=== PATIENT | male | born 1945 | race Caucasian/White ===

== ENCOUNTER → 2016-08-11 | Outpatient (CLI) | payer BC ==
[~2016-08-11] MED LIST: ANSHCCR PR; ATOR-24 PO; ATOR-26 PO; CALC-51 PO; CALC250T8 PO; EPI PEN; ERYT2GEL3 TOP; GLUCOSAMINE PO; IBUP-1459 PO; NUTRTAB48 PO; OMEG10007 PO
== END | disposition home or self-care (01) ==
LOC: C.CTS 13:36
PROVIDERS: ATTEND Orthopaedic Surgery
DX: Z01.818 Encounter for other preprocedural examination (principal); M19.012 Primary osteoarthritis, left shoulder

== ENCOUNTER → 2017-02-24 | Day surgery (SDC) | payer BC ==
[2017-02-16 08:52] VITALS: Ht 177.8 cm; Wt 79.1 kg
[~2017-02-24] VITALS: Ht 177.8 cm; Wt 79.1 kg
[~2017-02-24] MED LIST changes: -ATOR-24 PO; -CALC-51 PO; -EPI PEN; -GLUCOSAMINE PO; -IBUP-1459 PO; +LIDOCAINE HCL 2% 2 ML VIAL (20MG/ML) ONE; -OMEG10007 PO; +PROPOFOL IV EMULSION 10 MG/ML 20 ML VIAL IV ONE; +SODIUM CHLORIDE 0.9% 500ML 500 ML IV ONE
--- NOTE | 2017-02-24 12:01 | Endo History and Physical ---
History & Physical Date of Service: Feb 24, 2017. Chief Complaint: SCREENING, HISTORY OF POLYPS 10YRS AGO Referring Physician: DR MURDOCK History of Present Illness 71 yo CM who presents for colonoscopy secondary to history of colon polyps. Past Surgical History Hx Cardiac Surgery: No Hx Internal Defibrillator: No Hx Pacemaker: No Hx Abdominal Surgery: No Hx of Implantable Prosthesis: No Hx Post-Op Nausea and Vomiting: No Hx Cancer Surgery: No Hx Thoracic Surgery: No Hx Orthopedic: Yes (RT KNEE ACL RECON) Hx Urinary Tract Surgery: Yes (LITHOTRIPSIES AND LASERS X13) Family History None Social History Smoking Status: Never Smoker Hx Substance Use: Yes ("A COUPLE TIMES/WEEK MARIJUANA") Hx Alcohol Use: Yes (3 GLASSES/NIGHT) Allergies Coded Allergies: BEE STING (Verified Allergy, Unknown, WELT, 02/24/17) HX ANAPHYLAXIS --> WENT THROUGH DESENSITIZATION PROCESS +30 YEARS AGO NO KNOWN DRUG ALLERGIES (Verified Allergy, Unknown, ., 02/24/17) Current Medications Reported Home Medications Medications Dose Route/Sig Max Daily Dose Days Date Category Erythromycin (Erythromycin (Acne Aid)) 2 % Gel 1 Dose TOP UD 02/16/17 Reported Glucosamine Complex (Nutritional Supplements) 1 Tab Tab 1 Tab PO BID 02/16/17 Reported Calcium Citrate 250 Mg Tab 1 Tab PO QPM 02/16/17 Reported Proctosol Hc (Hydrocortisone) 90 Appln/30 Gm Cr 1 Appln [place] BID PRN 02/16/17 Reported Lipitor (Atorvastatin Calcium) 80 Mg Tab 80 Mg PO QPM 02/16/17 Reported Vital Signs Weight (Kilograms): 79.09 Height (Feet): 5 Height (Inches): 10 Date Time Temp Pulse Resp B/P (MAP) Pulse Ox O2 Delivery O2 Flow Rate FiO2 02/24/17 11:12 36.7 65 16 153/81 (105) 100 Room Air Physical Exam General Appearance: WD/WN, no apparent distress Respiratory/Chest: Auscultation: breath sounds normal Cardiovascular: Heart Auscultation: RRR Abdomen: Bowel Sounds: normal Inspection & Palpation: soft, non-distended, no tenderness, guarding & rebound Assessment and Plan Assessment: 71 yo CM who presents for colonoscopy secondary to history of colon polyps. Plan: Proceed with colonoscopy.
--- NOTE | 2017-02-24 13:01 | Discharge Instructions ---
Endoscopy Patient Instructions Date / Procedure(s) Performed Feb 24, 2017. Colonoscopy Allergy Information Coded Allergies: BEE STING (Verified Allergy, Unknown, WELT, 02/24/17) HX ANAPHYLAXIS --> WENT THROUGH DESENSITIZATION PROCESS +30 YEARS AGO NO KNOWN DRUG ALLERGIES (Verified Allergy, Unknown, ., 02/24/17) Discharge Date / Findings Feb 24, 2017. Diverticulosis Internal hemorrhoids Medication Instructions OK to resume all medications today as prescribed Reported Home Medications Medications Dose Route/Sig Max Daily Dose Days Date Category Erythromycin (Erythromycin (Acne Aid)) 2 % Gel 1 Dose TOP UD 02/16/17 Reported Glucosamine Complex (Nutritional Supplements) 1 Tab Tab 1 Tab PO BID 02/16/17 Reported Calcium Citrate 250 Mg Tab 1 Tab PO QPM 02/16/17 Reported Proctosol Hc (Hydrocortisone) 90 Appln/30 Gm Cr 1 Appln [place] BID PRN 02/16/17 Reported Lipitor (Atorvastatin Calcium) 80 Mg Tab 80 Mg PO QPM 02/16/17 Reported Provider Instructions Activity Restrictions - No exercising or heavy lifting for 24 hours. - Do not drink alcohol the day of the procedure. - Do not drive a car or operate machinery until the day after the procedure. - Do not make any important decisions or sign important papers in 24 hours after the procedure. Following Day: - Return to full activity which may include returning to work/school. Diet Start your diet with liquids and light foods (jello, soup, juice, toast). Then eat your usual diet if not nauseated. Treatment For Common After Affects For mild abdominal pain, bloating, or excessive gas: - Rest - Eat lightly - Lie on right side Follow-Up Information Follow-up with DR MURDOCK as scheduled Anesthesia Information What You Should Know You have had a procedure that required some medicine to reduce anxiety and discomfort. This treatment is called moderate sedation. After receiving the treatment, you may be sleepy, but you will be able to breathe on your own. The effects of the treatment may last for several hours. Follow these instructions along with Activity/Diet recommendations noted above: * Do NOT do anything where dizziness or clumsiness would be dangerous. * Rest quietly at home today, then you can be up and about tomorrow. * Have a responsible person stay with you the rest of today. * You may have had an I.V. today. If so, you may take the dressing off later today. Recommendations Call your doctor if: * Trouble breathing * Continuous vomiting for more than 24 hours * Temperature above 101 degrees * Severe abdominal pain or bloating * Pain not relieved by pain medicine ordered * There is increased drainage or redness from any incision * A large amount of rectal bleeding greater than 2-3 tablespoons. (If you had a polyp/s removed or have hemorrhoids, a small amount of blood - from the rectum is to be expected.) * You have any unanswered questions or concerns. IN THE EVENT OF A SERIOUS EMERGENCY, GO TO THE NEAREST EMERGENCY ROOM Your discharge instructions were prepared by provider Koko Bradshaw. Patient Instructions Signature Page Zachariah Simmons Patient (or Guardian) Signature/Date: I have read and understand the instructions given to me by my caregivers. Caregiver/RN/Doctor Signature/Date: The above-named patient and/or guardian has received patient instructions on this date. + Original Patient Signature Page (only) stays with chart. Please make copy for patient.
--- NOTE | 2017-02-24 13:23 | Anesthesiology Progress Note ---
Anesthesia Post Op Note Date & Time Feb 24, 2017 at 13:23 Vital Signs Pain Intensity: 0 Vital Signs Past 12 Hours Date Time Temp Pulse Resp B/P (MAP) Pulse Ox O2 Delivery O2 Flow Rate FiO2 02/24/17 13:14 44 16 138/88 (105) 96 Room Air 02/24/17 12:59 53 16 128/81 (97) 97 Room Air 02/24/17 11:12 36.7 65 16 153/81 (105) 100 Room Air Notes Mental Status: alert / awake / arousable, participated in evaluation Pt Amnestic to Procedure: Yes Nausea / Vomiting: adequately controlled Pain: adequately controlled Airway Patency, RR, SpO2: stable & adequate BP & HR: stable & adequate Hydration State: stable & adequate Anesthetic Complications: no major complications apparent
[2017-02-24 13:29] VITALS: BP 137/89; PULSE 43; O2SAT 97
--- NOTE | 2017-02-24 13:33 | GI REPORT ---
Procedure Date: 02/24/2017 12:32 PM Procedure: Colonoscopy Indications: High risk colon cancer surveillance: Personal history of colonic polyps Medicines: Monitored Anesthesia Care Complications: No immediate complications. Estimated Blood Loss: Estimated blood loss: none. Procedure: Pre-Anesthesia Assessment: - Prior to the procedure, a History and Physical was performed, and patient medications and allergies were reviewed. The patient's tolerance of previous anesthesia was also reviewed. The risks and benefits of the procedure and the sedation options and risks were discussed with the patient. All questions were answered, and informed consent was obtained. Prior Anticoagulants: The patient has taken no previous anticoagulant or antiplatelet agents. ASA Grade Assessment: II - A patient with mild systemic disease. After reviewing the risks and benefits, the patient was deemed in satisfactory condition to undergo the procedure. After I obtained informed consent, the scope was passed under direct vision. Throughout the procedure, the patient's blood pressure, pulse, and oxygen saturations were monitored continuously. The scope was introduced through the anus and advanced to the terminal ileum. The colonoscopy was performed without difficulty. The patient tolerated the procedure well. The quality of the bowel preparation was good. The terminal ileum, ileocecal valve, appendiceal orifice, and rectum were photographed. Findings: Multiple small-mouthed diverticula were found in the sigmoid colon. Non-bleeding internal hemorrhoids were found during retroflexion. The hemorrhoids were small. Impression: - Diverticulosis in the sigmoid colon. - Non-bleeding internal hemorrhoids. - No specimens collected. Recommendation: - Resume previous diet. - Continue present medications. - Repeat colonoscopy in 5 years for surveillance. - Return to primary care physician as previously scheduled. Koko Bradshaw DO 02/24/2017 1:32:43 PM This report has been signed electronically. Note Initiated On: 02/24/2017 12:32 PM I attest to the content of the Intraoperative Record and orders documented therein, exceptions below
== END | disposition home or self-care (01) ==
LOC: C.GI 10:50
PROVIDERS: ATTEND Internal Medicine
DX: Z12.11 Encounter for screening for malignant neoplasm of colon (principal); Z86.010 Personal history of colon polyps; K57.92 Diverticulitis of intestine, part unspecified, without perforation or abscess without bleeding; K64.8 Other hemorrhoids; E78.5 Hyperlipidemia, unspecified; M19.90 Unspecified osteoarthritis, unspecified site; Z87.442 Personal history of urinary calculi; N40.0 Benign prostatic hyperplasia without lower urinary tract symptoms

== ENCOUNTER → 2017-03-25 | Outpatient (CLI) | payer BC ==
[~2017-03-25] MED LIST changes: -LIDOCAINE HCL 2% 2 ML VIAL (20MG/ML) ONE; -PROPOFOL IV EMULSION 10 MG/ML 20 ML VIAL IV ONE; -SODIUM CHLORIDE 0.9% 500ML 500 ML IV ONE
[2017-03-25 10:44] LABS: ALT/SGPT 25 U/L (12-78); AST/SGOT 20 U/L (15-37); BLOOD UREA NITROGEN 15 mg/dl (7-18); BUN/CREATININE RATIO 17.6 (10-20); CALCIUM 9.6 mg/dl (8.5-10.1); CARBON DIOXIDE 28 mmol/L (21-32); CHLORIDE 107 mmol/L (98-107); CHOLESTEROL 152 mg/dl (0-200); CREATININE 0.85 mg/dl (0.60-1.40); GLUCOSE 91 mg/dl (70-99); POTASSIUM 4.1 mmol/L (3.5-5.1); SODIUM 140 mmol/L (136-145); TRIGLYCERIDES 56 mg/dl (0-150); VERY LOW DENSITY LIPOPROT CALC 11 mg/dl
[2017-03-25 10:48] LABS: ALB/GLOB RATIO 1.5 (0.9-2); ALKALINE PHOSPHATASE 76 U/L (45-117); CHOLESTEROL/HDL RATIO 2.1; HDL CHOLESTEROL 73 mg/dl; LDL CHOLESTEROL CALCULATED 68 mg/dl; PROSTATE SPECIFIC ANTIGEN 0.524 ng/ml (0.000-4.000)
== END | disposition home or self-care (01) ==
LOC: C.LAB 09:20
PROVIDERS: ATTEND Family Medicine
DX: E78.5 Hyperlipidemia, unspecified (principal); Z12.5 Encounter for screening for malignant neoplasm of prostate

== ENCOUNTER → 2017-11-09 | Outpatient (CLI) | payer BC | END | disposition home or self-care (01) | LOC: C.PATHSPEC 17:15 | PROVIDERS: ATTEND Surgery | DX: L72.0 Epidermal cyst (principal) ==

== ENCOUNTER 2020-11-04 10:33 | Observation (INO) ==
--- NOTE | 2020-09-30 14:44 | PAT Medication Instructions ---
Medication Instructions Date of Service September 30, 2020 Home Medications calcium citrate 200 mg (950 mg) tablet 200 mg PO QAM erythromycin with ethanol 2 % topical gel See Rx Instructions TOPICAL .COMPLEX zinc 50 mg tablet 50 mg PO QAM atorvastatin 40 mg tablet 40 mg PO QPM prednisone 5 mg tablet 5 mg PO .COMPLEX acetaminophen 650 mg tablet,extended release 650 mg PO Q12H glucosamine sulfate 500 mg tablet 500 mg PO QAM melatonin 5 mg PO HS PRN Continue as directed erythromycin with ethanol 2 % topical gel See Rx Instructions TOPICAL .COMPLEX prednisone 5 mg tablet 5 mg PO .COMPLEX STOP taking 2 weeks before surgery If surgery is within 2 weeks, stop taking as soon as possible. glucosamine sulfate 500 mg tablet 500 mg PO QAM DO NOT take the morning of surgery calcium citrate 200 mg (950 mg) tablet 200 mg PO QAM zinc 50 mg tablet 50 mg PO QAM Take morning of surgery With a small sip of water, OTHERWISE NOTHING TO EAT OR DRINK AFTER MIDNIGHT: acetaminophen 650 mg tablet,extended release 650 mg PO Q12H (if needed, may be taken up to four hours before surgery) Take evening before surgery atorvastatin 40 mg tablet 40 mg PO QPM acetaminophen 650 mg tablet,extended release 650 mg PO Q12H melatonin 5 mg PO HS PRN (if needed) Other Notes If you have any questions please call us at [phone] or [phone] or [phone] or [phone]
--- NOTE | 2020-10-01 12:13 | Anesthesiology Consultation ---
Date of Service October 01, 2020 Assessment & Plan (1) Encounter for pre-operative examination: COVID Status: As of 10/01 assessment, patient denies travel to endemic area, known exposure/sick contacts, or symptoms of COVID19. Patient instructed that they and their household members must follow strict social distancing guidelines, wear a mask in public and avoid travel/events/gatherings prior to surgery. Preoperative COVID19 testing to be completed prior to surgery per surgeon's arrangements. Patient made aware to self-isolate as much as possible between COVID testing and surgery. Patient will be getting his second COVID vaccine on 10/21. He and his are planning to travel to [place] to see their sons tomorrow, returning 10/09. This is well in advance of his surgery, and patient is very conscientious about masking (wears two masks in public spaces). He is aware to not travel within 2 weeks of his surgery. Patient hypertensive at [facility], but reports normal readings at PCP office visits, and PCP has never indicated any need for medications. Review of [facility] records shows BP normally 120's-130's systolic, 70s diastolic. He is somewhat nervous about surgery/hospital setting, likely some degree of 'white coat HTN.' Chart Review Chart Review: Acceptable Risk for Surgery and Patient seen in Pre Admission Testing Teaching & Discussion Instructed NPO after midnight before surgery, except medications with 15 cc of water. Medication instructions provided according to the [facility] guidelines. History Surgery Operation Date: 11/04/20 11:30 Proposed Procedures p Left Total Shoulder Arthroplasty - Dimitri Montoya, Height/Weight Height: 5 ft 10 in Weight: 82.4 kg Allergies Allergy/AdvReac Type Severity Reaction Status Date / Time bee venom protein (honey bee) Allergy Unknown WELT Verified 09/09/20 11:03 No Known Drug Allergies Allergy Unknown . Verified 09/09/20 11:03 Medications Home Medications Medication Instructions Recorded Confirmed Last Taken calcium citrate 200 mg (950 mg) 200 mg PO QAM tab 03/23/19 10/01/20 Unknown tablet erythromycin with ethanol 2 % See Rx Instructions TOPICAL 03/23/19 10/01/20 Unknown topical gel .COMPLEX gm zinc 50 mg tablet 50 mg PO QAM 03/23/19 10/01/20 Unknown atorvastatin 40 mg tablet 40 mg PO QPM 06/14/19 10/01/20 Unknown prednisone 5 mg tablet 5 mg PO .COMPLEX 02/28/20 10/01/20 Unknown acetaminophen 650 mg 650 mg PO Q12H 07/05/20 10/01/20 Unknown tablet,extended release glucosamine sulfate 500 mg tablet 500 mg PO QAM tab 07/05/20 10/01/20 Unknown melatonin 5 mg PO HS PRN 07/05/20 10/01/20 Unknown Past Medical History Medical History (Updated 10/01/20 @ 12:17 by Dontrell Murcia) Diverticulosis Folliculitis Hyperlipidemia Kidney stones hx of and had lithotripsy and ESWL Multiple benign nevi Osteoarthritis Osteoarthritis of left shoulder PMR (polymyalgia rheumatica) Exercise / Class Metabolic Activity 1 > 8 Run/Swim/Ski/Tennis Past Surgical History Surgical History (Updated 10/01/20 @ 12:05 by Dontrell Murcia) History of arthroscopy of right knee acl repair History of carpal tunnel surgery of right wrist Hx of left inguinal hernia repair Hx of umbilical hernia repair Past Anesthesia History No Hx of Anesthesia Complications and No Family Hx of Anesthesia Complications History of PONV No Hx of PONV and No Hx of Motion Sickness Social History Smoking Status: Never smoker Do You Dip or Chew Tobacco: No Hx Alcohol Use: Yes alcohol intake frequency: 3 or more drinks per day (4/day) Hx Substance Use: Yes substance use type: marijuana Last Used Substance Other:: small amount daily, advised none for 24 hrs prior to surgery Review of Systems Pt denies any recent chest pain, shortness of breath, palpitations, cough, fever, URI, or uncontrolled acid reflux. Physical Exam Vital Signs BP: 168/98 (rpt 166/96) P: 51bpm SPO2: 98% RA T: 98.7 F R: 12 ENMT Mouth: + dental restorations (several crowns and fillings); no chipped teeth and no loose teeth Thyromental Distance: < 3.5 Finger Breadths (3) Mallampati Class: I Neck + facial hair (long thick bushy mejia); neck extension not limited Respiratory normal respiratory effort, lungs clear to auscultation Cardiovascular Rate/Rhythm: regular rhythm and + bradycardic Heart Sounds: no murmur Vessels: no carotid bruit Extremities: no edema Testing Laboratory Results 10/01/20 12:33 10/01/20 12:33 PT 10.2 Seconds (9.0-12.0) 10/01/20 12:33 INR 1.0 (0.9-1.1) 10/01/20 12:33 APTT 24.8 Seconds (21.0-31.0) 10/01/20 12:33 Blood Type A Positive 10/01/20 12:33 Antibody Screen NEGATIVE 10/01/20 12:33 Electrocardiogram Date: 10/01/20 Findings: + SB @ (48bpm) Nonspecific ST abnormality. Compared with EKG of 03/23/2013, no significant change was found. Chest X-Ray Date: 10/01/20 Findings: + NAD
--- NOTE | 2020-10-01 12:58 | XRay Report ---
TWO VIEW CHEST CLINICAL HISTORY: Preoperative examination. FINDINGS: PA and lateral chest radiographs are compared to study dated 05/07/2009. The heart is mildl y enlarged. The pulmonary vasculature is noncongested. The lungs and pleural spaces are clear. There is no pneumothorax. The bony thorax appears intact. Arthritic change is noted in the left shoulder. IMPRESSION: No active disease in the chest. ACT 112: Negative or not required by law. Electronically signed by: Edgard Lees M.D. 10/01/2020 12:57 PM
[2020-10-01 13:46] LABS: Basophils # (auto) 0.02 K/uL (0-0.2); Basophils % (auto) 0.3 %; Eosinophils # (auto) 0.03 K/uL (0-0.5); Eosinophils % (auto) 0.4 %; Hematocrit (blood only) 39.6 % (42-52); Hemoglobin 13.9 g/dL (14.0-18.0); Immature Granulocytes # (auto) 0.02 K/uL (0.00-0.02); Immature Granulocytes % (auto) 0.3 %; Lymphocytes # (auto) 1.06 K/uL (1.2-3.4); Lymphocytes % (auto) 15.8 %; Mean Corpuscular Hemoglobin 32.5 pg (25-34); Mean Corpuscular Hgb Conc 35.1 g/dL (32-36); Mean Corpuscular Volume 92.5 fL (80-100); Monocytes # (auto) 0.43 K/uL (0.11-0.59); Monocytes % (auto) 6.4 %; Neutrophils # (auto) 5.17 K/uL (1.4-6.5); Neutrophils % (auto) 76.8 %; Platelet Count 342 K/uL (130-400); RDW Standard Deviation 43.8 fL (36.4-46.3); Red Blood Count 4.28 M/uL (4.7-6.1); White Blood Count 6.73 K/uL (4.8-10.8)
[2020-10-01 14:00] LABS: Partial Thromboplastin Ratio 0.9; Partial Thromboplastin Time 24.8 Seconds (21.0-31.0); Prothrombin Time 10.2 Seconds (9.0-12.0)
[2020-10-01 14:05] LABS: BUN Creatinine Ratio 21.3 (10-20); Calcium 9.5 mg/dl (8.5-10.1); Creatinine Clr Calc Pharmacy 80.9 ml/min; Est GFR (African American) 100.7; Est GFR (Non-African American) 86.9; Potassium 3.9 mmol/L (3.5-5.1)
--- NOTE | 2020-10-01 16:29 | Electrocardiogram Report ---
Test Reason : Blood Pressure : / mmHG Vent. Rate : 048 BPM Atrial Rate : 048 BPM P-R Int : 172 ms QRS Dur : 106 ms QT Int : 500 ms P-R-T Axes : 078 071 047 degrees QTc Int : 446 ms Sinus bradycardia Nonspecific ST abnormality Abnormal ECG When compared with ECG of 23-MAR-2013 10:03, No significant change was found Confirmed by Rajinder Cruz ([id number]) on 10/01/2020 4:28:35 PM Referred By: Dimitri Montoya Confirmed By:Rajinder Cruz
--- NOTE | 2020-11-04 06:33 | History & Physical Report ---
Date of Service November 04, 2020 Assessment & Plan (1) Osteoarthritis of left shoulder: We will proceed with a left total shoulder arthroplasty. Postoperatively he will be placed in a sling and kept overnight in the hospital for postoperative medical management. He plans to use energy physical therapy upon discharge. History of Present Illness Chief Complaint: Advanced osteoarthritis of the left shoulder. Primary Care Provider: Manuelito Tolentino MD Nikunj is a pleasant 75-year-old male who is been dealing with chronic increasing left shoulder pain. X-rays and clinical examination have been diagnostic for advanced osteoarthritis of the left shoulder. After failing conservative treatment, he has elected to proceed with a left total shoulder arthroplasty.. Allergies Allergy/AdvReac Type Severity Reaction Status Date / Time bee venom protein (honey bee) Allergy Unknown WELT Verified 09/09/20 11:03 No Known Drug Allergies Allergy Unknown . Verified 09/09/20 11:03 Home Medications Medication Instructions Recorded Confirmed Type calcium citrate 200 mg (950 mg) 200 mg PO QAM tab 03/23/19 10/01/20 History tablet erythromycin with ethanol 2 % See Rx Instructions TOPICAL 03/23/19 10/01/20 History topical gel .COMPLEX gm zinc 50 mg tablet 50 mg PO QAM 03/23/19 10/01/20 History atorvastatin 40 mg tablet 40 mg PO QPM 06/14/19 10/01/20 History prednisone 5 mg tablet 5 mg PO .COMPLEX 02/28/20 10/01/20 History acetaminophen 650 mg 650 mg PO Q12H 07/05/20 10/01/20 History tablet,extended release glucosamine sulfate 500 mg tablet 500 mg PO QAM tab 07/05/20 10/01/20 History melatonin 5 mg PO HS PRN 07/05/20 10/01/20 History Past Med/Surg History Medical History Diverticulosis Folliculitis Hyperlipidemia Kidney stones hx of and had lithotripsy and ESWL Multiple benign nevi Osteoarthritis Osteoarthritis of left shoulder PMR (polymyalgia rheumatica) Surgical History History of arthroscopy of right knee acl repair History of carpal tunnel surgery of right wrist Hx of left inguinal hernia repair Hx of umbilical hernia repair Social History Smoking Status: Never smoker Second Hand Exposure: No; Hx Alcohol Use: Yes Hx Substance Use: Yes Last Used Substance Other:: small amount daily, advised none for 24 hrs prior to surgery Preferred Language: Citizen [place] Communication Ability: Effective 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 Physical Exam On physical examination of the left shoulder, he has limited range of motion about 90 degrees of forward elevation 90 degrees of abduction. He has good strength and crepitus throughout.. Constitutional WD/WN, vitals as above Eyes PERRL, conjunctivae normal, anicteric sclerae ENMT external ear and nose normal, oropharynx normal Neck trachea midline, no thyromegaly Respiratory normal respiratory effort Cardiovascular RRR, no murmur, no edema Gastrointestinal (Abdomen) normal bowel sounds, soft, nontender, no hepatosplenomegaly Psychiatric A+Ox3, euthymic affect Results & Data Results & Data Laboratory Results . Diagnostic Findings X-rays of the left shoulder do show advanced osteoarthritis with joint space narrowing, osteophyte formation, and [id number] articulation. PG Care Time/CCT Total # of Minutes Spent Total Time Spent with Patient: Total time spent is greater than 50% in coordination of care (as documented) at patient's floor/unit and/or counseling patient: Coding Level of Care Code None Diagnoses Osteoarthritis of left shoulder M19.012
[~2020-11-04 10:33] MED LIST changes: +ACETAMINOPHEN 500 MG TAB PO SCH; -ANSHCCR PR; -ATOR-26 PO; +BUPIVACAINE 0.5 % 5 MG/1 ML PF 10ML VIAL ONE; -CALC250T8 PO; -ERYT2GEL3 TOP; +FAMOTIDINE 20 MG TAB PO SCH; +GABAPENTIN 300 MG CAP PO SCH; +LR 15ML/HR IV SCH; +LR 60ML/HR IV SCH; -NUTRTAB48 PO; +ROPIVACAINE 0.5% HCL/PF 150 MG, BUPIVACAINE 0.75% MPF 20 ML, EPINEPHrine 30MG/30ML (OR ... INSTIL SCH; +TRANEXAMIC ACID 1,000 MG **IV Intra-op IV SCH; +TRANEXAMIC ACID 1,000 MG **IV Pre-op IV SCH; +ceFAZolin 2000MG 2,000 MG/15 ML SYR IV SCH; +dexAMETHasone 4 MG TAB PO SCH
[2020-11-04] MEDS ORDERED: fentaNYL citrate 100 MCG/2 ML VIAL ONE (11:06)
[2020-11-04] MEDS ORDERED: MIDAZOLAM HCL 1 MG/ML 2ML VIAL ONE (11:06)
[2020-11-04] MEDS ORDERED: ORTHO JOINT ANESTHETIC ONE (11:57)
[2020-11-04] MEDS ORDERED: PROMETHAZINE HCL 12.5 MG in SODIUM CHLORIDE 0.9% 50 ML IV PRN (12:02)
[2020-11-04] MEDS ORDERED: ONDANSETRON INJ 2 MG/ML 2 ML VIAL IV PRN ×2 (12:02→16:08)
[2020-11-04] MEDS ORDERED: HYDROmorphone INJ 1 MG/ML SYRINGE IV PRN (12:02)
[2020-11-04] MEDS ORDERED: ePHEDrine sulfate 50 MG/ML AMP IV PRN (12:02)
[2020-11-04] MEDS ORDERED: fentaNYL citrate 100 MCG/2 ML VIAL IV PRN (12:02)
[2020-11-04] MEDS ORDERED: NALOXONE HCL 0.4 MG/1 ML VIAL/CARP IV PRN ×2 (12:02→16:08)
[2020-11-04] MEDS ORDERED: FLUMAZENIL 0.1 MG/1 ML 10 ML VIAL IV PRN (12:02)
[2020-11-04] MEDS ORDERED: ATROPINE SULFATE 0.1 MG/ML 10ML SYR IV PRN (12:02)
--- NOTE | 2020-11-04 14:17 | Operative Report ---
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 I identified the patient and participated in the time-out.: Yes Procedure Operation Date: 11/04/20 12:45 Actual Procedures p Left Total Shoulder Arthroplasty(Left) with open biceps tenodesis as a distinct and separate procedure (modifier 59)- Dimitri Montoya DO Surgeon Dimitri Montoya DO Transfer And Pumphouse Operator Dimitri Lema PAC Estimated Blood Loss 250 Findings Consistent with Post-Op Diagnosis Specimens Left humeral head Complications none Disposition Disposition: Recovery Room Indications Nikunj is a pleasant 75-year-old male who has been dealing with chronic increasing left shoulder pain. X-rays and clinical examination were diagnostic for advanced osteoarthritis of the left shoulder. After failing years of conservative treatment, he has elected proceed with a left total shoulder arthroplasty Description of Procedure A CPT code modifier 59: The long head of the biceps tendon was enlarged and inflamed consistent with tendinopathy. A tenodesis was opted. This was a separate and distinct portion of the procedure. For these reasons, a CPT code modifier 59 will be added to this case. Implants used: I used a [employer] Comprehensive total shoulder arthroplasty system with a size 15 press fit micro humeral stem, a size 46 x 18 eccentric humeral head, and a size 5 glenoid with a trabecular metal peg. The glenoid was cemented in place with Palacos G cement. Nikunj arrived at [facility] for the above procedure. He was seen in the preoperative holding area and the operative extremity was identified and signed. He was given a preoperative antibiotic, TXA, and an interscalene nerve block. He was taken back to the operating room, laid on table in supine po sition, and put under general anesthesia. He was then put into the beachchair position. The shoulder was then prepped and draped in sterile fashion. A timeout was done and the patient and the operative extremity was properly identified. A deltopectoral approach was used. Dissection was taken down through the fascia and the deltoid was retracted laterally and the conjoined tendon was retracted medially. The anterior shoulder was exposed. The biceps groove was opened up and the biceps tendon was examined extensively. The biceps tendon demonstrated enlargement and inflammatory changes consistent with longstanding inflammation in the context of osteoarthritis. The long head of the biceps tendon was then tenodesed to the upper border of the pectoralis major. This was a separate and distinct portion of the procedure. The subscapularis was then released off the lesser tuberosity with a centimeter of cuff tissue remaining. The inferior capsule was released and the humeral head was dislocated. The rotator cuff was inspected and intact. A canal finding reamer was sent down the center of the humeral canal. Sequential reaming up to a size 15 reamer was done. Offset reamer a proximal humeral resection guide was placed. The proximal humerus was resected at 135 of inclination and 30 of retroversion. Inferior osteophytes were then removed and the glenoid was exposed. Time was spent doing an appropriate labral release. The glenoid measured to be a size 5. A 3.2 mm Steinmann pin was placed in the central hole of the glenoid vault pin guide. The glenoid was then reamed with a propeller reamer. The central post cutter was then used to prepare for the central boss. The cannulated peripheral peg drill guide was then placed and 3 peg holes were drilled. The final size 5 glenoid was then cemented in place with Palacos G cement. Surrounding soft tissues were then injected with 100 cc of an orthopedic pain control cocktail. Once cement had dried the proximal humerus was once again exposed. Sequential broaching of the humerus up to a size 15 broach was done. Off that broach a size 46 x 18 eccentric humeral head was trialed. The shoulder was then reduced, brought through a full range of motion, and felt to be stable. The shoulder was then dislocated and the broach was removed. The final size 15 micro humeral stem implant was then impacted into place. A size 46 x 18 eccentric humeral head was then impacted onto the humeral stem. The shoulder was then reduced and once again brought through a full range of motion and felt to be stable. The subscapularis was then tenodesed back to the lesser tuberosity with transosseous FiberWire sutures and side to side sutures with the arm in 45 of external rotation. 2 sutures were placed in the lateral rotator interval. A dilute betadyne lavage was then done for 3 minutes. The joint was then irrigated with normal saline solution. Hemostasis was obtained. The interval was closed with 2-0 Vicryl suture. The skin was closed with 2-0 Vicryl and venice. A Silverlon dressing was placed and the arm was rested in a regular arm sling. He was then extubated and transferred to a hospital bed. He was taken to the postanesthesia care unit in stable condition. He tolerated the procedure well. Dimitri Lema PA-C, was present for the entire procedure. He was critical for patient positioning, prepping, draping, retraction exposure, wound closure and application of sterile dressing. I attest to the content of the Intraoperative Record and any orders documented therein. Any exceptions are noted below.
[2020-11-04] MEDS ORDERED: PROPOFOL IV EMULSION 10 MG/ML 20 ML VIAL IV ONE (14:49)
[2020-11-04] MEDS ORDERED: LARYING-O-JET KIT (LTA) ONE (14:49)
[2020-11-04] MEDS ORDERED: ePHEDrine sulfate 50 MG/ML SYR ONE (14:49)
[2020-11-04] MEDS ORDERED: CISATRACURIUM BESYLATE IV SOLN 2 MG/ML 10 ML VIAL IV ONE (14:49)
[2020-11-04] MEDS ORDERED: NEOSTIGMINE METHYLSULFATE 5 MG/5 ML SYR ONE (14:49)
[2020-11-04] MEDS ORDERED: LIDOCAINE HCL 2% 2 ML VIAL/AMP(20MG/ML) INFIL ONE (14:49)
[2020-11-04] MEDS ORDERED: PHENYLEPHRINE 100MCG/ML 5ML SYR ONE (14:49)
[2020-11-04] MEDS ORDERED: DEXAMETHASONE SOD INJ 4 MG/ML VIAL ONE (14:49)
[2020-11-04] MEDS ORDERED: ONDANSETRON INJ 2 MG/ML 2 ML VIAL ONE (14:49)
[2020-11-04] MEDS ORDERED: GLYCOPYRROLATE 0.2 MG/ML VIAL ONE (14:49)
[2020-11-04] MEDS ORDERED: hydrALAZINE HCL 20 MG/ML VIAL IV STA (14:58)
[2020-11-04] MEDS ORDERED: hydrALAZINE HCL 20 MG/ML VIAL ONE (15:00)
--- NOTE | 2020-11-04 15:10 | XRay Report ---
XR shoulder LT min 2V routine CLINICAL HISTORY: Post shoulder surgery COMPARISON: Left shoulder radiographs July 02, 2020. FINDINGS: Alignment of the left shoulder arthroplasty is anatomic. There is no periprosthetic fractu re. Skin venice are present. There are no unexpected radiopaque foreign bodies. IMPRESSION: Expected findings following left shoulder arthroplasty. ACT 112: Negative or not required by law. Electronically signed by: Ced Moss M.D. 11/04/2020 3:09 PM
--- NOTE | 2020-11-04 15:22 | Anesthesiology Progress Note ---
Date of Service November 04, 2020 Anesthesia Post Procedure Vital Signs Vital Signs: Temp Pulse Pulse Resp BP BP Pulse Ox 11/04/20 15:15 74 20 171/97 H 95 11/04/20 15:05 67 15 175/101 H 96 11/04/20 14:55 67 14 145/99 H 100 11/04/20 14:45 70 15 146/87 H 100 11/04/20 14:36 36.2 C L 76 20 153/90 H 100 11/04/20 11:22 37 C 56 L 18 181/103 H 98 Transfer of Care Handoff Completed per policy Notes Mental Status: alert / awake / arousable Patient Amnestic to Procedure: Yes Nausea / Vomiting: adequately controlled Pain: adequately controlled Airway Patency, RR, SpO2: stable & adequate BP & HR: stable & adequate Hydration State: stable & adequate Anesthetic Complications: no major complications apparent
[2020-11-04] MEDS ORDERED: oxyCODONE HCL IR 5 MG TAB (IMMEDIATE RELEASE) PO PRN (16:08)
[2020-11-04] MEDS ORDERED: MAGNESIUM HYDROXIDE SUSP 30 ML UDC PO PRN (16:08)
[2020-11-04] MEDS ORDERED: HYDROmorphone INJ 0.5 MG/0.5 ML SYR IV PRN (16:08)
[2020-11-04] MEDS ORDERED: METOCLOPRAMIDE HCL INJ 5 MG/ML 2 ML VIAL IV PRN (16:08)
[2020-11-04] MEDS ORDERED: bisacodyL 10 MG SUPP PR PRN (16:08)
[2020-11-04] MEDS: SODIUM CHLORIDE 0.9% 1000ML 1,000 ML IV SCH (16:18)
[2020-11-04] MEDS: KETOROLAC TROMETHAMINE 15 MG/ML VIAL IV SCH ×2 (18:02→23:06)
[2020-11-04] MEDS: DOCUSATE SODIUM 100 MG CAP PO SCH (20:40)
[2020-11-04] MEDS: ceFAZolin 2000MG 2,000 MG/15 ML SYR IV SCH (20:41)
[2020-11-04] MEDS ORDERED: ATORVASTATIN 40 MG TAB PO SCH ×2 (21:00)
[2020-11-04] MEDS ORDERED: SENNA 8.6 MG TAB PO SCH (21:00)
[2020-11-04] MEDS: ACETAMINOPHEN 500 MG TAB PO SCH (21:33)
[2020-11-05] MEDS: SODIUM CHLORIDE 0.9% 1000ML 1,000 ML IV SCH (02:40)
[2020-11-05] MEDS: ceFAZolin 2000MG 2,000 MG/15 ML SYR IV SCH (05:47)
[2020-11-05] MEDS: ACETAMINOPHEN 500 MG TAB PO SCH (05:48)
[2020-11-05] MEDS: KETOROLAC TROMETHAMINE 15 MG/ML VIAL IV SCH ×2 (05:48→11:31)
--- NOTE | 2020-11-05 07:07 | Orthopedic Progress Note ---
Date of Service November 05, 2020 Assessment & Plan (1) Status post replacement of left shoulder joint: Overall he is doing well. Is not having much pain in the shoulder. He will be seen by physical therapy today for ambulation and range of motion exercises. He can be discharged home later today. He will follow-up with orthopedics in 2 weeks. Subjective Nikunj was seen and examined at bedside this morning. Overall he is doing very well. Is not having much pain in the left shoulder. He was able to get some sleep last night. He has no complaints.. Review of Systems All systems reviewed & are unremarkable except as noted in HPI & below. Physical Exam On physical examination of the left shoulder, the dressing is clean and dry. He is wearing his sling as instructed.. Results & Data Results & Data Laboratory Results . Diagnostic Findings Postoperative x-rays of the left shoulder show the prosthesis to be in anatomic alignment without any evidence of fracture, dislocation, or loosening. PG Care Time/CCT Total # of Minutes Spent Total Time Spent with Patient: Total time spent is greater than 50% in coordination of care (as documented) at patient's floor/unit and/or counseling patient: Coding Level of Care Code 92107 Post Operative Follow-Up Diagnoses Status post replacement of left shoulder joint Z96.612
--- NOTE | 2020-11-05 07:08 | Discharge Summary ---
Date of Service November 05, 2020 Admission HPI (Per Admitting) Nikunj is a pleasant 75-year-old male who is been dealing with chronic increasing left shoulder pain. X-rays and clinical examination have been diagnostic for advanced osteoarthritis of the left shoulder. After failing conservative treatment, he has elected to proceed with a left total shoulder arthroplasty.. Admission Exam (Per Admitting) On physical examination of the left shoulder, he has limited range of motion about 90 degrees of forward elevation 90 degrees of abduction. He has good strength and crepitus throughout.. Principal Diagnosis Same as "Discharge Diagnosis" noted below under Discharge Instructions. Discharge Exam On physical examination of the left shoulder, the dressing is clean and dry. He is wearing his sling as instructed.. Discharge Data Procedures Performed Operation Date: 11/04/20 12:45 Actual Procedures p Left Total Shoulder Arthroplasty(Left) - Dimitri Montoya DO Ordered Studies 11/04/20 05:00 US - OR guided needle placemen Routine Hospital Course (1) Status post replacement of left shoulder joint: On November 04, 2020 Nikunj arrived at [facility] and underwent a left shoulder replacement without complication. He had a general anesthetic and a left interscalene nerve block. Postoperatively he was placed in a sling and transferred to the general orthopedic floors. His hospital course was uneventful. On postop day #1 his vital signs were stable and his pain was well controlled. He was able to participate well with physical therapy doing ambulation and range of motion exercises. He was then discharged home. He will follow-up with orthopedics in 2 weeks. PG Care Time/CCT Total # of Minutes Spent Total Time Spent with Patient: Total time spent is greater than 50% in coordination of care (as documented) at patient's floor/unit and/or counseling patient: Discharge Plan Discharge Items Patient Disposition: Home - Home Health Services Reason For Visit: Degenerative Joint Disease Left Shoulder Discharge Diagnosis: Left shoulder replacement Activity: As commented below Non-emergency contact: Surgeon Call non-emergency contact if: your wound has increased redness and your wound has increased drainage Follow-up/Referrals: Manuelito Tolentino MD [Primary Care Provider] - Diet: Regular Addtl Attending Provider Instructions: Activity and Therapy Recommendations: * If you are using [facility] then therapy will be provided at your home until they feel you have accomplished all of your goals. * If you are using [facility] then Physical Therapy will be provided until they feel you are ready to start Outpatient Physical Therapy. * If you are not using home therapy then Outpatient Physical Therapy should start about 3-5 days from your day of surgery. Therapy will last about 8-12 weeks * Wear your sling for 3 weeks, unless otherwise instructed. You may remove your sling to shower and to dress, but otherwise, you should be in your sling at all times, including while sleeping * The shoulder replacement is very stable and you can use your hand while in the sling * You were shown a series of exercises in the hospital. Do these exercises daily including the exercises you were shown in physical therapy. Medications: * Narcotic You will likely be sent home from the hospital with a prescription for the narcotic pain medication that worked best throughout your stay. * Other medications may be prescribed for specific circumstances. If you have any questions, please call the office at . * Resume previous home medications unless otherwise instructed Dressing Care: Leave the Silverlon dressing in place for 7 days. After 7 days you may remove the dressing. If the incision is not draining then you may leave the venice open to air. If there is a little bit of drainage or if the venice are getting stuck on your clothing then cover the incision with a dry dressing. The venice will be removed at your 2 week follow-up appointment. Showering: You may shower with the Silverlon dressing in place. Do not let the shower spray hit the dressing directly. Pat the Silverlon dressing dry. If the dressing becomes wet underneath, then simply remove the dressing. Keep the incision dry until you are 7 days out from the day of surgery. After 7 days you may remove the Silverlon dressing and shower with the venice exposed. Let soapy water run over the venice and pat them dry. Do not scrub or soak the incision. Things To Watch For: * Drainage from the incision site that occurs more than one week after your surgery. * Increased redness at the incision site. * Fever above 102 degrees Fahrenheit. * Unusual chest pain or shortness of breath. * Call [facility] at with any of the above problems Follow-Up Visit: Follow-up with Dr. Montoya's PA (Dimitri Torey) 2-3 weeks after your day of surgery. He will remove your venice and answer any questions. If you have any additional questions or concerns, Dr Montoya is usually in the office at the same time and will be available An appointment was probably scheduled when you signed-up for surgery in the office. If you have any questions call More detailed instructions as well as Frequently Asked Questions were provided in a folder by our office when you signed-up for surgery. Please review these instructions when you get home. If you have any further questions or concerns, please feel free to call the office at [phone] Pending Studies at Discharge: No Stand-Alone Forms: My [facility] Partschannel, Smoking Cessation Medications and DC Order Prescriptions: New oxycodone 5 mg Tablet 5 mg PO Q4H PRN (Reason: pain) Qty: 30 RF: 0 Continued zinc 50 mg tablet 50 mg PO QAM RF: 0 erythromycin with ethanol 2 % gel See Rx Instructions topical .COMPLEX RF: 0 calcium citrate 200 mg (950 mg) tablet 200 mg PO QAM RF: 0 melatonin 5 mg PO HS PRN (Reason: Sleep) RF: 0 acetaminophen [Tylenol Arthritis Pain] 650 mg tablet extended release 650 mg PO Q12H RF: 0 atorvastatin 40 mg tablet 40 mg PO QPM RF: 0 prednisone 5 mg tablet 5 mg PO .COMPLEX RF: 0 glucosamine sulfate 500 mg tablet 500 mg PO QAM RF: 0 Discharge Orders: Discharge Order (Routine); Ordered 11/05/20 Ordered By: Dimitri Montoya Admission Data Admit Date/Time: 11/04/20 14:37 Attending Provider: Dimitri Montoya Admit Provider: Dimitri Montoya Primary Care Provider: Manuelito Tolentino
[2020-11-05] MEDS: DOCUSATE SODIUM 100 MG CAP PO SCH (07:53)
[2020-11-05 08:14] LABS: Hematocrit (blood only) 35.6 % (42-52); Hemoglobin 12.5 g/dL (14.0-18.0); Immature Granulocytes # (auto) 0.02 K/uL (0.00-0.02); Immature Granulocytes % (auto) 0.2 %; Lymphocytes # (auto) 0.68 K/uL (1.2-3.4); Lymphocytes % (auto) 5.9 %; Mean Corpuscular Hemoglobin 32.2 pg (25-34); Mean Corpuscular Hgb Conc 35.1 g/dL (32-36); Mean Corpuscular Volume 91.8 fL (80-100); Monocytes # (auto) 0.93 K/uL (0.11-0.59); Neutrophils # (auto) 9.95 K/uL (1.4-6.5); Neutrophils % (auto) 85.9 %; Platelet Count 330 K/uL (130-400); RDW Coefficient of Variation 13.1 % (11.5-14.5); Red Blood Count 3.88 M/uL (4.7-6.1); White Blood Count 11.58 K/uL (4.8-10.8)
[2020-11-05 08:43] LABS: BUN Creatinine Ratio 22.4 (10-20); Calcium 8.9 mg/dl (8.5-10.1); Creatinine Clr Calc Pharmacy 82.8 ml/min; Est GFR (African American) 101.7; Est GFR (Non-African American) 87.7; Potassium 4.1 mmol/L (3.5-5.1)
[2020-11-05] MEDS ORDERED: MULTIVITAMIN TAB PO SCH (09:00)
[2020-11-05] MEDS ORDERED: predniSONE 1 MG TAB PO SCH (09:00)
== END 2020-11-05 12:50 | disposition home health service (06) ==
LOC: ASU 10:33 → INTOOBSV 14:37 → 3E 14:37